=== PATIENT | female | born 1995 | race American Indian/Alaskan Native ===

== ENCOUNTER 2018-11-05 20:01 | Emergency (ER) | payer MEDICAID, OTHER, SELFPAY ==
[2018-11-05 20:36] VITALS: BMI 28.3
[2018-11-05 21:47] VITALS: RESP 18; TEMP 98.5; O2SAT 100
--- NOTE | 2018-11-05 23:28 | ED PDOC ---
Arrival/HPI - General Historian: Patient - History of Present Illness Narrative History of Present Illness (Text): 11/06/18 00:08 23 y/o female with no significant PMH presents to the ED c/o left ankle pain s/p injury that occurred this evening. Pt was walking down the stairs and missed a step, causing her to roll her left ankle. Denies head strike. Pt able to ambulate although with pain. Took ibuprofen with good relief. Denies numbness, weakness, paresthesias, pain elsewhere, or any open wounds. <Miriam Damian - Last Filed: 11/06/18 00:08> <Luis E Aggarwal - Last Filed: 11/06/18 19:18> - General Chief Complaint: Lower Extremity Problem/Injury Time Seen by Provider: 11/05/18 20:13 Past Medical History - Provider Review Nursing Documentation Reviewed: Yes - Pulmonary Hx Asthma: Yes - Psychiatric Hx Substance Use: No - Anesthesia Hx Anesthesia: No Hx Anesthesia Reactions: No Hx Malignant Hyperthermia: No <Miriam Damian - Last Filed: 11/06/18 00:08> Family/Social History - Physician Review Nursing Documentation Reviewed: Yes Family/Social History: No Known Family HX Smoking Status: Never Smoked Hx Alcohol Use: Yes Frequency of alcohol use: Socially Hx Substance Use: No <Miriam Damian - Last Filed: 11/06/18 00:08> Allergies/Home Meds <Miriam Damian - Last Filed: 11/06/18 00:08> <Luis E Aggarwal - Last Filed: 11/06/18 19:18> Allergies/Adverse Reactions: Allergies No Known Allergies Allergy (Verified 11/05/18 20:36) Review of Systems - Review of Systems Constitutional: Normal. absent: Fevers Respiratory: Normal. absent: SOB, Cough Cardiovascular: Normal. absent: Chest Pain, Palpitations Gastrointestinal: Normal. absent: Abdominal Pain, Nausea, Vomiting Musculoskeletal: Other (left ankle pain). absent: Back Pain, Neck Pain Skin: Normal. absent: Laceration, Abscess Neurological: Normal. absent: Headache, Dizziness <Miriam Damian - Last Filed: 11/06/18 00:08> Physical Exam Vital Signs Reviewed: Yes Vital Signs Temp Pulse Resp BP Pulse Ox 11/05/18 20:15 98.5 F 85 18 115/72 100 Temperature: Afebrile Blood Pressure: Normal Pulse: Regular Respiratory Rate: Normal Appearance: Positive for: Well-Appearing, Non-Toxic, Comfortable Pain Distress: None Mental Status: Positive for: Alert and Oriented X 3 - Systems Exam Head: Present: Atraumatic, Normocephalic Pupils: Present: PERRL Extroacular Muscles: Present: EOMI Conjunctiva: Present: Normal Mouth: Present: Moist Mucous Membranes Neck: Present: Normal Range of Motion Respiratory/Chest: Present: Clear to Auscultation, Good Air Exchange. No: Respiratory Distress, Accessory Muscle Use Cardiovascular: Present: Regular Rate and Rhythm, Normal S1, S2, Peripheal Pulses Present Upper Extremity: Present: Normal Inspection, Normal ROM, NORMAL PULSES, Neurovascularly Intact, Capillary Refill < 2s. No: Cyanosis, Edema, Temperature Abnormalties Lower Extremity: Present: Normal Inspection, NORMAL PULSES, Normal ROM, Tenderness (anterior to left malleolus), Swelling (mild over left lateral ankle), Neurovascularly Intact, Capillary Refill < 2 s. No: Edema, Deformity, Temperature Abnormalties Neurological: Present: GCS=15, CN II-XII Intact, Speech Normal, Motor Func Grossly Intact, Normal Sensory Function Skin: Present: Warm, Dry, Normal Color. No: Rashes Psychiatric: Present: Alert, Oriented x 3, Normal Insight, Normal Concentration, Normal Affect, Normal Mood <Miriam Damian - Last Filed: 11/06/18 00:08> Vital Signs Temp Pulse Resp BP Pulse Ox 11/05/18 23:34 82 18 121/74 100 11/05/18 20:15 98.5 F 85 18 115/72 100 <Luis E Aggarwal - Last Filed: 11/06/18 19:18> Medical Decision Making ED Course and Treatment: 11/06/18 00:05 Initial Plan: * Left ankle XR * POC preg POC negative Pt refusing pain medications at this time Xray read as negative for fracture or dislocation by me Pt placed in left short leg posterior splint by me. neurovascular exam remains unchanged. pt given crutch training by technical sourcing recruitercasey Bojorquez. Pt able to demonstrate safe and effective crutch use prior to discharge. Advised PMD and podiatry followup. Diagnostic testing results and plan of care discussed with patient. Strict instructions given regarding prescription use, importance of followup, and signs/symptoms to return to ER including worsening pain, numbness, weakness, paresthesias, or any other new/worsening symptoms. Pt verbalized understanding of discussion. Patient is A&Ox3, ambulating with steady gait, with vital signs stable for discharge. - RAD Interpretation Radiology Orders: 11/05/18 20:47 ANKLE LEFT 3 VIEWS ROUTINE [RAD] Stat <Miriam Damian - Last Filed: 11/06/18 00:08> - RAD Interpretation Radiology Orders: 11/05/18 20:47 ANKLE LEFT 3 VIEWS ROUTINE [RAD] Stat <Luis E Aggarwal - Last Filed: 11/06/18 19:18> - PA / TRAINING PROJECT MANAGER / Resident Statement MD/DO has reviewed & agrees with the documentation as recorded. <Luis E Aggarwal - Last Filed: 11/06/18 19:18> Disposition/Present on Arrival - Present on Arrival Any Indicators Present on Arrival: No History of DVT/PE: No History of Uncontrolled Diabetes: No Urinary Catheter: No History of Decub. Ulcer: No History Surgical Site Infection Following: None - Disposition Have Diagnosis and Disposition been Completed?: Yes Disposition Time: 23:00 Patient Plan: Discharge <Miriam Damian - Last Filed: 11/06/18 00:08> <Luis E Aggarwal - Last Filed: 11/06/18 19:18> - Disposition Diagnosis: Ankle sprain Disposition: HOME/ ROUTINE Condition: IMPROVED Discharge Instructions (ExitCare): Ankle Sprain (DC) Additional Instructions: Ibuprofen/tylenol for pain keep ankle elevated and compressed Use crutches for ambulation, weight bear as tolerated Followup with podiatry within 2 days Followup with primary within 2 days Return to ER with any new/worsening symptoms Prescriptions: Ibuprofen [Motrin Tab] 600 mg PO Q8H PRN #30 tab PRN Reason: Pain, Moderate (4-7) Referrals: Podiatry Clinic [Outside] - Follow up with primary Eleni Newton MD [Primary Care Provider] - Follow up with primary Forms: [employer] (N[place]ian), WORK NOTE
[2018-11-06 00:16] VITALS: BP 121/74; PULSE 82
--- NOTE | 2018-11-06 13:59 | RAD ---
Date of service: 11/05/2018 PROCEDURE: Left Ankle Radiographs. HISTORY: left ankle rolled, lateral pain COMPARISON: None available. TECHNIQUE: 3 views obtained. FINDINGS: BONES: Normal. No fracture. JOINTS: Normal. No osteoarthritis. Ankle mortise maintained. Talar dome intact SOFT TISSUES: Mild soft tissue swelling over the lateral malleolus extending superiorly into the lateral soft tissues of the lower extremity OTHER FINDINGS: None. IMPRESSION: No evidence of acute displaced fracture nor dislocation. There is mild lateral soft tissue swelling.
== END 2018-11-05 23:34 | disposition home or self-care (01) ==
LOC: ED 20:01
DX: S93.402A Sprain of unspecified ligament of left ankle, initial encounter (principal); X50.1XXA Overexertion from prolonged static or awkward postures, initial encounter